=== PATIENT | male | born 1960 | race Caucasian/White ===

== ENCOUNTER 2017-11-25 12:17 | Inpatient (IN) | payer MEDICAID ==
[~2017-11-25] VITALS: Ht 172.7 cm; Wt 95.3 kg
[~2017-11-25 12:17] MED LIST: DULO60CA44 PO; GABA-533 PO; LISI-662 PO
[2017-11-25] MEDS ORDERED: LORazepam 2 MG TABLET PO PRN (13:00)
[2017-11-25] MEDS ORDERED: HALOPERIDOL 5 MG TABLET PO PRN (13:00)
[2017-11-25 13:34] VITALS: BP 142/99
[2017-11-25] MEDS ORDERED: GABA-533 PO (14:58)
[2017-11-25] MEDS ORDERED: DULO20CA30 PO (14:58)
[2017-11-25] MEDS ORDERED: MAG HYDROX/AL HYDROX/SIMETH ES 30 ML SUSPENSION UDCUP PO PRN (15:00)
[2017-11-25] MEDS ORDERED: CloNIDine HCL 0.1 MG TABLET PO PRN (15:00)
[2017-11-25] MEDS ORDERED: PETROLATUM,WHITE 71 GM JELLY TP PRN (15:00)
[2017-11-25] MEDS ORDERED: ACETAMINOPHEN 325 MG TABLET PO PRN (15:00)
[2017-11-25] MEDS ORDERED: MAGNESIUM HYDROXIDE SUSPENSION 30 ML UDCUP PO PRN (15:00)
[2017-11-25] MEDS ORDERED: LOPERAMIDE HCL 2 MG CAPSULE PO PRN (15:00)
[2017-11-25] MEDS ORDERED: DOCUSATE SODIUM 100 MG CAPSULE PO PRN (15:00)
[2017-11-25 16:05] VITALS: BP 138/79
[2017-11-25] MEDS: LISINOPRIL 20 MG TABLET PO SCH (17:10)
[2017-11-25] MEDS: DULoxetine HCL 60 MG CAPSULE PO SCH (17:11)
[2017-11-25] MEDS: IBUPROFEN 800 MG TABLET PO SCH ×2 (17:11→17:14)
[2017-11-26 00:57] VITALS: BP 118/81
[2017-11-26] MEDS ORDERED: PNEUMOCOCCAL VACCINE POLYVALENT 0.5 ML VIAL [PPSV23] IM ONE (03:45)
[2017-11-26 08:10] VITALS: BP 108/60
[2017-11-26 09:04] LABS: EOSINOPHILS % (AUTO) 6.5 % (1.0-6.0); HEMATOCRIT 43.6 % (41-53); HEMOGLOBIN 15.3 g/dL (13.5-17.5); LYMPHOCYTES # (AUTO) 2.2 K/uL (1.0-4.8); LYMPHOCYTES % (AUTO) 28.4 % (22.0-44.0); MEAN CORPUSCULAR HEMOGLOBIN 28.8 pg (26.0-34.0); MEAN CORPUSCULAR VOLUME 82 fL (80-100); MONOCYTES # (AUTO) 0.8 K/uL (0.1-1.0); MONOCYTES % (AUTO) 10.9 % (2.0-9.0); NEUTROPHILS % (AUTO) 53.2 % (40.0-70.0); PLATELET COUNT (AUTO) 165 K/uL (150-450); RED CELL DISTRIBUTION WIDTH 14.5 % (11.5-14.5)
[2017-11-26] MEDS: LISINOPRIL 20 MG TABLET PO SCH (09:22)
[2017-11-26] MEDS: IBUPROFEN 800 MG TABLET PO SCH ×3 (09:22→16:41)
[2017-11-26] MEDS: DULoxetine HCL 60 MG CAPSULE PO SCH ×2 (09:23→16:41)
[2017-11-26 09:37] LABS: ALANINE AMINOTRANSFERASE 24 U/L (12-78); ALBUMIN 3.1 g/dL (3.4-5.0); ALKALINE PHOSPHATASE 93 U/L (46-116); ANION GAP 10 mmol/L (8-16); ASPARTATE AMINOTRANSFERASE 20 U/L (15-37); BILIRUBIN,TOTAL 0.9 mg/dL (0.1-1.0); CALCIUM, TOTAL 8.6 mg/dL (8.8-10.5); CARBON DIOXIDE 23 mmol/L (22-29); CHLORIDE 108 mmol/L (98-107); CHOL/HDL RATIO 3.3 (4.2-7.3); CHOLESTEROL 145 mg/dL (131-200); CREATININE 0.64 mg/dL (0.60-1.30); FREE T4 (FREE THYROXINE) 1.11 ng/dL (0.76-1.46); GLOMERULAR FILTR. RATE CALC > 60 mL/min (>60); GLUCOSE,RANDOM 80 mg/dL (70-110); HDL CHOLESTEROL 44 mg/dL (40-60); LDL CHOL (CALC.) 86 mg/dL (0-130); POTASSIUM 3.2 mmol/L (3.5-5.1); SODIUM SERUM 141 mmol/L (136-145); THYROID STIMULATING HORMONE 0.36 uIU/mL (0.36-3.74); TOTAL PROTEIN, SERUM 6.1 g/dL (6.4-8.2); TRIGLYCERIDES 77 mg/dL (15-150); UREA NITROGEN, BLOOD 17 mg/dL (7-18)
[2017-11-26] MEDS ORDERED: POTASSIUM CHLORIDE 20 MEQ ER TABLET PO ONE (11:00)
[2017-11-26] MEDS: GABAPENTIN 400 MG CAPSULE PO SCH ×3 (13:13→21:04)
[2017-11-26 16:09] VITALS: BP 122/86
[2017-11-27 02:28] VITALS: BP 110/65
[2017-11-27 08:40] VITALS: BP 108/67
[2017-11-27] MEDS: GABAPENTIN 400 MG CAPSULE PO SCH ×4 (08:46→21:04)
[2017-11-27] MEDS: IBUPROFEN 800 MG TABLET PO SCH ×3 (08:46→17:00)
[2017-11-27] MEDS: DULoxetine HCL 60 MG CAPSULE PO SCH ×2 (08:46→17:00)
[2017-11-27] MEDS: LISINOPRIL 20 MG TABLET PO SCH (08:46)
[2017-11-27 09:10] LABS: POTASSIUM 3.9 mmol/L (3.5-5.1); THYROID STIMULATING HORMONE 0.18 uIU/mL (0.36-3.74)
[2017-11-27 16:05] VITALS: BP 119/76
[2017-11-28 00:39] VITALS: BP 103/80
[2017-11-28 08:00] VITALS: BP 117/79
[2017-11-28] MEDS: DULoxetine HCL 60 MG CAPSULE PO SCH ×2 (09:00→16:02)
[2017-11-28] MEDS: LISINOPRIL 20 MG TABLET PO SCH (09:01)
[2017-11-28] MEDS: IBUPROFEN 800 MG TABLET PO SCH ×3 (09:01→16:03)
[2017-11-28] MEDS: GABAPENTIN 400 MG CAPSULE PO SCH ×4 (09:01→21:08)
[2017-11-28 16:02] VITALS: BP 128/81
[2017-11-29 00:29] VITALS: BP 120/81
[2017-11-29 08:23] VITALS: BP 102/60
[2017-11-29] MEDS: DULoxetine HCL 60 MG CAPSULE PO SCH ×2 (08:39→16:01)
[2017-11-29] MEDS: GABAPENTIN 400 MG CAPSULE PO SCH ×4 (08:39→20:13)
[2017-11-29] MEDS: IBUPROFEN 800 MG TABLET PO SCH ×3 (08:40→16:02)
[2017-11-29] MEDS: BuPROPion HCL XL 150 MG ER TABLET PO SCH (08:40)
[2017-11-29] MEDS: LISINOPRIL 20 MG TABLET PO SCH (08:40)
[2017-11-29 16:10] VITALS: BP 124/70
[2017-11-30 00:35] VITALS: BP 149/87
[2017-11-30] MEDS: ZOLPIDEM TARTRATE 10 MG TABLET PO PRN (00:46)
[2017-11-30 08:17] VITALS: BP 122/69
[2017-11-30] MEDS: BuPROPion HCL XL 150 MG ER TABLET PO SCH (08:47)
[2017-11-30] MEDS: DULoxetine HCL 60 MG CAPSULE PO SCH ×2 (08:47→16:17)
[2017-11-30] MEDS: LISINOPRIL 20 MG TABLET PO SCH (08:47)
[2017-11-30] MEDS: GABAPENTIN 400 MG CAPSULE PO SCH ×4 (08:47→20:02)
[2017-11-30] MEDS: IBUPROFEN 800 MG TABLET PO SCH ×3 (08:47→16:17)
[2017-11-30 16:33] VITALS: BP 131/75
[2017-12-01 01:43] VITALS: BP 111/74
[2017-12-01] MEDS: ZOLPIDEM TARTRATE 10 MG TABLET PO PRN (01:45)
[2017-12-01 08:31] VITALS: BP 126/85
[2017-12-01] MEDS ORDERED: BuPROPion HCL XL 150 MG ER TABLET PO SCH (09:00)
[2017-12-01] MEDS: IBUPROFEN 800 MG TABLET PO SCH ×3 (09:21→16:02)
[2017-12-01] MEDS: LISINOPRIL 20 MG TABLET PO SCH (09:22)
[2017-12-01] MEDS: GABAPENTIN 400 MG CAPSULE PO SCH ×4 (09:22→20:01)
[2017-12-01] MEDS: DULoxetine HCL 60 MG CAPSULE PO SCH ×2 (09:22→16:02)
[2017-12-01 16:10] VITALS: BP 117/85
[2017-12-01] MEDS ORDERED: GABA-533 PO (16:29)
[2017-12-01] MEDS ORDERED: BUPR-93 PO (16:29)
[2017-12-01] MEDS ORDERED: DULO60CA44 PO (16:29)
[2017-12-01] MEDS ORDERED: LISI-662 PO (16:29)
[2017-12-01] MEDS ORDERED: IBUP-2071 PO (16:29)
== END 2017-12-01 22:12 | disposition home or self-care (01) | DRG 751 ==
LOC: B2S 13:21
PROVIDERS: ADMIT Psychiatry & Neurology Psychiatry; ATTEND Psychiatry & Neurology Psychiatry
PROC: 3E0234Z Introduction of Serum, Toxoid and Vaccine into Muscle, Percutaneous Approach (ICD-10-PCS; principal; 2017-11-26)
DX: F33.2 Major depressive disorder, recurrent severe without psychotic features (principal); R45.851 Suicidal ideations; I10 Essential (primary) hypertension; E87.6 Hypokalemia; M10.9 Gout, unspecified; G89.29 Other chronic pain; R00.0 Tachycardia, unspecified; F12.10 Cannabis abuse, uncomplicated; Z79.899 Other long term (current) drug therapy; Z59.0 Homelessness; Z71.51 Drug abuse counseling and surveillance of drug abuser; Z23 Encounter for immunization
CPT/HCPCS: 83036; 84132; 84439; 84443; 90471